=== PATIENT | female | born 1995 | race Asian ===

== ENCOUNTER 2020-04-12 09:56 | Outpatient (CLI) | payer OTHER, SELFPAY ==
--- NOTE | 2020-04-12 10:34 | PM.OBTRLD ---
Visit Information Visit Information Date of evaluation: 04/12/20 On-call OB Provider: Diane Freeman Reason for Evaluation: Yes rupture of membranes Comments/Additional reasons for admission: 24yo at 29w2d here with concern for ROM. The pt reports feeling a gush of fluid around 6:30am with soaking of her underwear. She denies any vaginal bleeding, cramping, or contractions. She has been feeling her baby move regularly. Evaluation Evaluation Baseline heart rate: 130 Variability: Moderate (11-25) monitor decelerations: Absent Non-invasive Membranes Rupture Test: negative Diagnosis, Plan/Disposition Final Diagnosis (1) Amniotic fluid leaking: Status: Acute (2) 29 weeks gestation of : Status: Deleted (3) 29 weeks gestation of : Status: Acute Plan/Disposition Plan: 24yo at 29w2d here with concern for PPROM. Amniosure negative. No evidence of ROM. Reactive NST. Stable for d/c home.
== END 2020-04-12 10:55 | disposition home or self-care (01) ==
LOC: LABOR 10:50 → OB 04-13 07:40
PROVIDERS: Referring Provider Family Medicine; Visit Provider Family Medicine
DX: O26.893 Other specified pregnancy related conditions, third trimester (principal); N89.8 Other specified noninflammatory disorders of vagina; Z3A.29 29 weeks gestation of pregnancy
CPT/HCPCS: 59025; G0378; G0379

== ENCOUNTER → 2020-04-21 16:43 | Outpatient (CLI) | payer OTHER, SELFPAY | PROVIDERS: Visit Provider Family Medicine | DX: Z34.82 Encounter for supervision of other normal pregnancy, second trimester (principal); Z3A.30 30 weeks gestation of pregnancy | CPT/HCPCS: 87086 ==

== ENCOUNTER → 2020-06-02 13:20 | Outpatient (CLI) | payer OTHER, SELFPAY ==
[2020-06-03 08:10] LABS: Strep Grp B PCR NEG for Grp B Strep
== END ==
PROVIDERS: Visit Provider Family Medicine
DX: Z34.03 Encounter for supervision of normal first pregnancy, third trimester (principal); Z3A.36 36 weeks gestation of pregnancy
CPT/HCPCS: 87653

== ENCOUNTER 2020-06-25 12:56 | Inpatient (IN) | payer OTHER, SELFPAY ==
--- NOTE | 2020-06-25 14:05 | P.HPOB_ITS ---
OB HPI Date/Time Date of admission: 06/25/20 Time Patient Seen: 14:09 History of Present Condition Chief complaint: Eval of Labor Narrative: Trae Garner is a 25 year old female G2 para 1 at 39 weeks gestational age with an estimated due date June 28, 2020 consistent with LMP and early ultrasound. Patient states she has been feeling well without problems. She says she woke up this morning at about 10 30 had rupture of membranes she says it was clear. She states after water broke about an hour later she began to contract. Her contractions have been now more consistent and presented to the center. She says her contractions are 6/7 on the pain scale. Patient has had no fevers chills nausea or vomiting. She has no headache right upper quadrant pain. She has had good baby movement. Patient is uncomfortable in requesting an epidural. Nurse reports AmniSure positive with clear amniotic fluid 5 cm dilated 80% effaced. History of Present care: good care Dating criteria: LMP confirmed by 1st trimester US Obstetrical complications: none Medical complications: none Preadmission Labs Blood type: O (+) positive -: Antibody screen: negative, Cystic fibrosis screen: unknown, GBS status: negative, HBsAG: negative, HIV: negative, HSV 1: unknown, HSV 2: unknown and RPR/VDLR: negative -: Chlamydia screen: not detected and Gonorrhea screen: not detected -: Rubella: immune and Varicella: immune PAP: Normal Quad screen: Normal Evaluation Evaluation Baseline heart rate: 140 Variability: Minimal (3-5) monitor accelerations: Absent monitor decelerations: Absent Contraction Frequency (minutes): 5 Uterine Contraction Intensity: Moderate Category of Tracing: Non-reactive Status: Category ll Cervical dilation (cm): 5 station: -3 [facility] Medical History Bacterial vaginosis (~11/2019) (spontaneous vaginal delivery) (~08/21/17) Surgical History No history of previous surgery Family History Mother Hypertension Hyperlipidemia Father No problems noted. Grandmother Family history unknown Grandfather Surgical history unknown Grandmother Family history unknown Grandfather Family history unknown Brother No known health problems Sister No known health problems Social History (Updated 04/20/20 @ 08:29 by Jazmyn Renteria RN) marital status: number of children: 1 household members: spouse and children lives independently: Yes pets and animals: No education level: college (X 2 years Ass.Degree in Pharmacy) occupational status: unemployed current occupational exposures/hazards: No jatin/methodist: Sikh special jatin needs: No Smoking Status: Never smoker second hand exposure: No alcohol intake: former (pre- : socially but not since she became a parent) substance use type: does not use Meds Home Medications and Allergies Home Medications Medication Instructions Recorded Confirmed Type prenat.vits,eduarda,[id number] 1 tab PO DAILY 04/20/20 06/23/20 History Allergies Allergy/AdvReac Type Severity Reaction Status Date / Time No Known Drug Allergies Allergy Verified 06/23/20 13:55 Exam Narrative Exam Narrative: . General: Alert no apparent distress. Affect is appropriate. Dell it is uncomfortable. HEENT: Neck is supple without lymphadenopathy pupils equal round and reactive. Cardio: S1-S2 regular rate and rhythm. Respiratory: Lungs clear to auscultation. Abdomen: Gravid. Extremities: Normal deep tendon reflexes trace edema. Assessment and Plan Assessment and Plan Assessment and Plan narrative: 25-year-old G2 para 1 at 49 weeks plus gestational age estimated due date of 06/28/2020. With rupture of membranes with clear fluid at 10:45 a.m. this morning. Patient in active labor. Dilation is 5 cm. category tracing is 2. IV will be started blood type will be done GBS negative. Patient requesting epidural. In patient care orders were written for consents and hospital reviewed. COVID test is pending at this point.
[2020-06-25 14:37] LABS: Add Manual Diff / Slide Review NO; Basophils Absolute Auto 100 /uL (0-100); Basophils Percent Auto 0.4 % (0-2); Eosinophils Absolute Auto 200 /uL (0-450); Eosinophils Percent Auto 1.1 % (2-4); Hematocrit 37.9 % (36-46); Hemoglobin 13.4 g/dL (12.0-16.0); Lymphocytes Absolute Auto 2300 /uL (1100-4500); Lymphocytes Percent Auto 15.7 % (25-40); Mean Corpuscular HGB Conc 35.3 % (30-36); Mean Corpuscular Hemoglobin 30.1 PG (26-34); Mean Corpuscular Volume 85.3 fL (80-100); Monocytes Absolute Auto 800 /uL (0-900); Monocytes Percent Auto 5.4 % (3-14); Neutrophils Absolute Auto 11300 /uL (1500-7000); Neutrophils Percent Auto 77.4 % (50-75); Platelet Count 237 X10^3/uL (150-400); Red Blood Cell Count 4.44 X10^6/uL (4.0-5.2); Red Cell Distribution Width 14.3 % (11.6-14.8); White Blood Cell Count 14.5 X10^3/uL (4.5-11.0)
[2020-06-25 14:56] LABS: COVID19 -Nasal RAPID Negative (Negative)
[2020-06-25] MEDS: LACTATED RINGERS 1,000 ML 100 ML IV (15:36)
[2020-06-25] MEDS: OXYTOCIN 10 UNIT/ML VIAL 20 UNIT (18:08)
--- NOTE | 2020-06-25 18:16 | PM.PROC.1 ---
Procedures Date/Time Date of procedure: 06/25/20 Time of procedure: 18:16 General Procedure description: Vaginal delivery Stage I of labor. Approximately 7 hours. During stage I of labor patient had category 1 category 2 heart tracing. Patient had normal blood pressure and vital signs throughout. Patient came in labor and delivery floor with rupture membranes with clear fluid 5 cm. Patient had an IV done hemoglobin hematocrit type and screen. Patient was NPO given IV fluids and ice chips. Patient had an epidural placed with good anesthetic results. During I am stage I of labor she had good progress till complete. Epidural provided adequate pain relief throughout. Times had category 2 tracing with decreased reactivity as well as be to be variability. Patient did have meconium during the 2nd stage of labor. Stage II of labor. Approximately 35 minutes. Patient delivered a live female infant in the vertex position. Baby had no nuchal cord. Had meconium. Patient had some early D cells with head compression during stage II. Baby made good descent through the stage II. At the time of delivery baby was placed on mother's abdomen. At the delivery of the head there was no difficulty with delivery of the shoulders. Baby had a good vigorous cry. Baby's heart rate was 140. Stage III of labor. Approximately 15 minutes. Does delivery of intact placenta with three-vessel cord. Estimated blood loss was 300 cc 10 units of IM Pitocin was given. Patient had a small midline tear less than 1 cm and a right-sided labial tear not needing repair. Afterwards mom and baby were resting comfortably Apgars 8 and 9.
[2020-06-25 19:56] VITALS: BP 112/55
[2020-06-26] MEDS: DERMOPLAST SPRAY 20% 60 ML 1 SPRAY TOP (03:55)
[2020-06-26 06:22] LABS: Hematocrit 36.2 % (36-46); Hemoglobin 12.4 g/dL (12.0-16.0)
[2020-06-26] MEDS: IBUPROFEN 600 MG TABLET PO (08:17)
[2020-06-26] MEDS: PRENATAL VIT,CALC/IRON/FOLIC 1 TABLET 1 TAB PO (08:18)
[2020-06-26] MEDS: DOCUSATE 100 MG CAPSULE PO (08:18)
--- NOTE | 2020-06-26 08:29 | PM.OBDS.1 ---
Discharge Providers Provider Date of admission: 06/25/20 12:56 Discharge Date: 06/26/20 Primary care physician: Doctor Wayne MD Consults: 06/26/20 18:14 Consult to Drafter Topographical Routine Comment: Discharge provider: Richard Blum MD Summary Hospital Course Date Patient Seen: 06/26/20 Time Patient Seen: 08:33 Peripartum Data Delivery Method: Natural Vaginal Laceration Description: None complications: none Time Spent with Patient Time attestation: Total time spent providing and/or coordinating discharge services: Time spent: Less than 30 minutes Objective Labs Result Diagrams: 06/26/20 05:50 Labs: Laboratory Results - last 24 hr 06/25/20 06/25/20 06/25/20 14:10 14:30 14:30 WBC 14.5 H RBC 4.44 Hgb 13.4 Hct 37.9 MCV 85.3 MCH 30.1 MCHC 35.3 RDW 14.3 Plt Count 237 Neut % (Auto) 77.4 H Lymph % (Auto) 15.7 L [place] % (Auto) 5.4 Eos % (Auto) 1.1 L Baso % (Auto) 0.4 Neut # (Auto) 26947 H Lymph # (Auto) 2300 [place] # (Auto) 800 Eos # (Auto) 200 Baso # (Auto) 100 SARS-CoV-2 (PCR) Negative Blood Type O Positive Antibody Screen Negative 06/26/20 05:50 WBC RBC Hgb 12.4 Hct 36.2 MCV MCH MCHC RDW Plt Count Neut % (Auto) Lymph % (Auto) [place] % (Auto) Eos % (Auto) Baso % (Auto) Neut # (Auto) Lymph # (Auto) [place] # (Auto) Eos # (Auto) Baso # (Auto) SARS-CoV-2 (PCR) Blood Type Antibody Screen Exam Vital Signs (past 8 hours): General: Alert no apparent distress. HEENT: Neck is supple without lymphadenopathy pupils equal round and reactive. Cardio: S1-S2 regular rate and rhythm. Respiratory: Lungs clear to auscultation. Abdomen: Uterus firm. Extremities: Normal deep tendon reflexes trace edema. Discharge Plan Discharge Plan Patient Disposition: Home Discharge orders & Medications Prescriptions: New docusate sodium [DOK] 100 mg Capsule 100 mg PO DAILY Qty: 30 RF: 0 ibuprofen 600 mg Tablet 600 mg PO Q6HR PRN (Reason: Pain, Mild (1-3)) Qty: 30 RF: 0 Continued prenat.vits,eduarda,[id number] Tablet 1 tab PO DAILY RF: 0 Follow up/Referrals: Vickycellarmando,Doctor, MD [Primary Care Provider] - Visit Report/Discharge Packet Visit Report Forms: Patient Portal/API, Stroke Signs & Symptoms Discharge Data Primary Care Provider: Doctor Wayne Attending Provider: Richard Blum Admit Date/Time: 06/25/20 12:56
[2020-06-26 16:04] VITALS: BP 101/63; PULSE 79; RESP 16; TEMP 36.8
== END 2020-06-26 16:45 | disposition home or self-care (01) | DRG 807 ==
PROVIDERS: Admitting Provider Family Medicine; Referring Provider Family Medicine; Visit Provider Family Medicine
DX: O77.0 Labor and delivery complicated by meconium in amniotic fluid (principal); Z37.0 Single live birth; Z3A.39 39 weeks gestation of pregnancy; Z20.822 Contact with and (suspected) exposure to COVID-19
CPT/HCPCS: 01967; 36415; 59050; 59410; 85014; 85018; 85025; 86850; 86900; 86901; 87635; C9803; G0378; G0379; J2590